=== PATIENT | female | born 1950 | race Caucasian/White ===

== ENCOUNTER 2017-12-28 20:24 | Emergency (ER) | payer OTHER, MEDICARE ==
[~2017-12-28] VITALS: Ht 167.6 cm; Wt 59.9 kg
[2017-12-28 20:43] VITALS: BP 143/84
--- NOTE | 2017-12-28 20:51 | NUR ---
TO LOBBY A/W BED, XRAY, VSS , AMB, ERMD NOTED
--- NOTE | 2017-12-28 20:53 | NUR ---
PT TAKEN TO BED 2
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
--- NOTE | 2017-12-28 21:21 | NUR ---
Cornelio boston in [facility] - 12/28/[address] Turner evaluating patient at bedside.
--- NOTE | 2017-12-28 21:22 | NUR ---
X-Ray at bedside.
--- NOTE | 2017-12-28 21:23 | NUR ---
RECEIVED REPORT FROM AM NURSE. PT RESTING IN BED, XR IN BEDSIDE AT THIS TIME.
--- NOTE | 2017-12-28 21:37 | NUR ---
Dr. Turner evaluating patient at bedside.
[2017-12-28 22:29] VITALS: BP 134/75
--- NOTE | 2017-12-28 22:30 | NUR ---
Patient discharged with v/s stable. Written and verbal after care instructions given and explained. Patient alert, oriented and verbalized understanding of instructions. Ambulatory with steady gait. All questions addressed prior to discharge. ID band removed. Patient advised to follow up with PMD. Rx of zithromax 250mg given. Patient educated on indication of medication including possible reaction and side effects. Opportunity to ask questions provided and answered.
== END 2017-12-28 22:30 | disposition home or self-care (01) ==
LOC: MED 20:24
DX: S43.491A Other sprain of right shoulder joint, initial encounter (principal); J44.1 Chronic obstructive pulmonary disease with (acute) exacerbation; Z88.0 Allergy status to penicillin; Z88.1 Allergy status to other antibiotic agents; Z88.6 Allergy status to analgesic agent; V49.69XA Unspecified car occupant injured in collision with other motor vehicles in traffic accident, initial encounter; Y93.89 Activity, other specified; Y99.8 Other external cause status; Y92.410 Unspecified street and highway as the place of occurrence of the external cause
CPT/HCPCS: 73030; 99284

== ENCOUNTER 2018-06-15 15:11 | Emergency (ER) | payer OTHER, MEDICARE ==
[~2018-06-15] VITALS: Ht 167.6 cm; Wt 60.8 kg
[2018-06-15 15:23] VITALS: BP 108/84
[2018-06-15] MEDS ORDERED: NACL 0.9% 1,000 ML IV SCH (16:17)
[2018-06-15] MEDS ORDERED: LORazepam 1 MG TAB PO ONE (16:20)
[2018-06-15 16:50] LABS: BASOPHILS # (AUTO) 0.1 K/uL (0.00-0.22); BASOPHILS % (AUTO) 0.7 % (0.0-2.0); EOSINOPHILS # (AUTO) 0.1 K/uL (0-0.4); EOSINOPHILS % (AUTO) 1.1 % (0.0-4.0); HEMATOCRIT 44.6 % (36-48); HEMOGLOBIN 14.4 g/dL (12.0-16.0); LYMPHOCYTES # (AUTO) 2.5 K/uL (2.5-16.5); LYMPHOCYTES % (AUTO) 18.8 % (20.5-51.1); MEAN CORPUSCULAR HEMOGLOBIN 31 pg (27-31); MEAN CORPUSCULAR HGB CONC 32 g/dL (33-37); MEAN CORPUSCULAR VOLUME 94.2 fL (80-94); MONOCYTES # (AUTO) 0.8 K/uL (0.8-1.0); MONOCYTES % (AUTO) 6.2 % (1.7-9.3); NEUTROPHILS # (AUTO) 9.6 K/uL (1.8-7.7); NEUTROPHILS % (AUTO) 73.2 % (42.2-75.2); PLATELET COUNT (AUTO) 260 K/uL (140-450); RED BLOOD CELL COUNT(AUTO) 4.74 MIL/uL (4.20-5.40); RED CELL DISTRIBUTION WIDTH 14.5 % (11.6-13.7); WHITE BLOOD COUNT (AUTO) 13.1 K/uL (4.8-10.8)
[2018-06-15 17:08] LABS: ANION GAP 11.8 (8-16); CARBON DIOXIDE 31.4 mmol/L (21-32); CREATININE 0.9 mg/dL (0.6-1.3); POTASSIUM 4.2 mmol/L (3.5-5.1); PROTHROMBIN TIME 9.4 secs (10.8-13.4)
[2018-06-15 17:09] LABS: APPEARANCE,URINE CLEAR (CLEAR); BILIRUBIN,URINE NEGATIVE (NEGATIVE); BLOOD, URINE 2+ (NEGATIVE); COLOR,URINE YELLOW (YELLOW); LEUKOCYTE ESTERASE ,URINE NEGATIVE (NEGATIVE); NITRITE, URINE NEGATIVE (NEGATIVE); UGLUCOSE NEGATIVE (NEGATIVE)
[2018-06-15 17:11] LABS: ALBUMIN 4.2 g/dL (3.4-5.0); TOTAL BILIRUBIN 0.6 mg/dL (0.0-1.0)
[2018-06-15 17:18] LABS: RBC,URINE 11-20 (MOD) /HPF (0-5); WBC,URINE 0-5 (RARE) /HPF (0-5)
[2018-06-15 18:42] VITALS: BP 108/84
== END 2018-06-15 18:43 | disposition home or self-care (01) ==
LOC: MED 15:11
DX: K62.5 Hemorrhage of anus and rectum (principal); J44.9 Chronic obstructive pulmonary disease, unspecified; H26.9 Unspecified cataract; Z88.0 Allergy status to penicillin; Z88.6 Allergy status to analgesic agent; Z88.8 Allergy status to other drugs, medicaments and biological substances
CPT/HCPCS: 36415; 74176; 80053; 81001; 82150; 83690; 85025; 85610; 85730; 86886; 86900; 86901; 93005; 96360; 99284; J7030

== ENCOUNTER 2019-05-24 17:05 | Emergency (ER) | payer OTHER, BC ==
[~2019-05-24] VITALS: Ht 167.6 cm; Wt 55.8 kg
[2019-05-24 17:52] VITALS: BP 121/76
--- NOTE | 2019-05-24 19:44 | NUR ---
68 Y/O FEMALE PRESENTS TO ED, C/O OF LEFT LEG PAIN. PT HAD PROCEDURE FOR VARICOSE VEINS, PT'S PHYSICIAN TEENAGE PROGRAM DIRECTOR WAS INJECTING UNKNOWN MEDICATION ON LEG. PT NOTICED PAIN ON June, 03/31; WOUND ON LEFT LOWER LEG. REDNESS AROUND WOUND, WARM TO TOUCH. NO DRAINAGE/BLEEDING. PT CURRENTLY RX DOXYCYCLINE, DENIES TAKING ANY MEDICATIONS FOR PAIN. PT AT STABLE CONDITION. ERMD AWARE. WILL CONTINUE TO MONITOR.
[2019-05-24] MEDS ORDERED: NACL 0.9% 1,000 ML IV ONE (20:15)
[2019-05-24] MEDS ORDERED: MORPHINE SULFATE 2 MG/ML SYR IVP ONE (20:15)
[2019-05-24] MEDS ORDERED: ALBUTEROL SULFATE/IPRATROPIU 3 ML SOL IH ONE (20:15)
[2019-05-24 21:12] LABS: BASOPHILS # (AUTO) 0.1 K/uL (0.00-0.22); BASOPHILS % (AUTO) 0.7 % (0.0-2.0); EOSINOPHILS # (AUTO) 0.2 K/uL (0-0.4); HEMATOCRIT 39.5 % (36-48); HEMOGLOBIN 13.1 g/dL (12.0-16.0); LYMPHOCYTES # (AUTO) 2.9 K/uL (2.5-16.5); LYMPHOCYTES % (AUTO) 31.7 % (20.5-51.1); MEAN CORPUSCULAR HEMOGLOBIN 31 pg (27-31); MEAN CORPUSCULAR HGB CONC 33 g/dL (33-37); MEAN CORPUSCULAR VOLUME 94.4 fL (80-94); MONOCYTES # (AUTO) 0.6 K/uL (0.8-1.0); MONOCYTES % (AUTO) 6.4 % (1.7-9.3); NEUTROPHILS # (AUTO) 5.3 K/uL (1.8-7.7); NEUTROPHILS % (AUTO) 59.2 % (42.2-75.2); PLATELET COUNT (AUTO) 236 K/uL (140-450); RED BLOOD CELL COUNT(AUTO) 4.19 MIL/uL (4.20-5.40); RED CELL DISTRIBUTION WIDTH 14.8 % (11.6-13.7)
[2019-05-24] MEDS ORDERED: LEVOFLOXACIN 500 MG/D5W PREMIX 100 ML IV ONE (21:30)
[2019-05-24 21:36] LABS: BILIRUBIN,URINE NEGATIVE (NEGATIVE); BLOOD, URINE 2+ (NEGATIVE); COLOR,URINE YELLOW (YELLOW); LEUKOCYTE ESTERASE ,URINE 1+ (NEGATIVE); NITRITE, URINE NEGATIVE (NEGATIVE); PH,URINE 7.5 (5.0-9.0); UGLUCOSE NEGATIVE (NEGATIVE)
[2019-05-24 21:39] LABS: ANION GAP 10.7 (8-16); CREATININE 0.7 mg/dL (0.6-1.3); POTASSIUM 3.7 mmol/L (3.5-5.1); TOTAL BILIRUBIN 0.5 mg/dL (0.0-1.0)
[2019-05-24 21:40] LABS: ALBUMIN 3.7 g/dL (3.4-5.0)
[2019-05-24 21:40] LABS: APPEARANCE,URINE HAZY (CLEAR)
[2019-05-24 22:50] VITALS: BP 127/86
--- NOTE | 2019-05-24 22:50 | NUR ---
PT DISCHARGED WITH PAPERWORK. RX TRAVIS. EDUCATED PT REGARDING MEDICATION. EDUCATED PT REGARDING D/C DIAGNOSIS AND INSTRUCTIONS. PT VERBALIZED UNDERSTANDING OF TEACHING. TOLD PT TO FOLLOW UP WITH PCP AND WHEN TO RETURN TO ED. PT AT STABLE CONDITION. PT DENIES ANY PAIN. ABLE TO AMBULATE WITH SLOW STEADY GAIT. ALL QUESTIONS ANSWERED.
== END 2019-05-24 22:50 | disposition home or self-care (01) ==
LOC: MED 17:05
DX: L03.116 Cellulitis of left lower limb (principal); R06.2 Wheezing; J43.9 Emphysema, unspecified; F17.210 Nicotine dependence, cigarettes, uncomplicated; Z88.0 Allergy status to penicillin; Z88.1 Allergy status to other antibiotic agents; Z88.6 Allergy status to analgesic agent; Z88.8 Allergy status to other drugs, medicaments and biological substances; Z98.890 Other specified postprocedural states; Z71.6 Tobacco abuse counseling
CPT/HCPCS: 36415; 71045; 80053; 81001; 83605; 85025; 87040; 87086; 94640; 96365; 96375; 99284; J1956; J2270; J7030; J7620; Q0092

== ENCOUNTER 2021-03-16 14:38 | Emergency (ER) | payer OTHER, MEDICAID ==
[~2021-03-16] VITALS: Ht 167.6 cm; Wt 62.6 kg
[2021-03-16 14:56] VITALS: BP 139/79
--- NOTE | 2021-03-16 15:05 | NUR ---
Pt taken to bed 11.
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
--- NOTE | 2021-03-16 16:10 | NUR ---
ULTRASOUND AT BEDSIDE
--- NOTE | 2021-03-16 17:00 | NUR ---
PT LEFT WITHOUT DISCHARGE PAPERS
== END 2021-03-16 17:00 | disposition home or self-care (01) ==
LOC: MED 14:38
DX: M79.604 Pain in right leg (principal); J43.9 Emphysema, unspecified; Z86.718 Personal history of other venous thrombosis and embolism
CPT/HCPCS: 93971; 99284; Q0092

== ENCOUNTER 2022-06-11 14:44 | Emergency (ER) | payer OTHER, MEDICAID ==
[~2022-06-11] VITALS: Ht 157.5 cm; Wt 62.8 kg
[2022-06-11 15:05] VITALS: BP 172/96
--- NOTE | 2022-06-11 15:08 | NUR ---
PATIENT HAD DISCOLORATION/SWELLING AND NUMBNESS ON BOTH FEET AND ANKLES X 2 WEEKS
--- NOTE | 2022-06-11 15:56 | NUR ---
Dr. Baig evaluating patient at bedside.
--- NOTE | 2022-06-11 16:17 | NUR ---
US at bedside.
[2022-06-11] MEDS ORDERED: ACET-10509 PO (17:15)
--- NOTE | 2022-06-11 17:20 | NUR ---
Dr. Baig re-evaluating patient at bedside.
[2022-06-11 17:41] VITALS: BP 160/81
--- NOTE | 2022-06-11 17:41 | NUR ---
Patient discharged with v/s stable. Written and verbal after care instructions given. Patient alert, oriented and verbalized understanding of instructions. Ambulatory with steady gait. All questions addressed prior to discharge. ID band removed. Patient advised to follow up with PMD. Rx of Acetaminophen given. Opportunity to ask questions provided and answered.
--- NOTE | 2022-06-11 17:42 | NUR ---
The patient's care was reviewed and supervised by Amalia Baeza, RN, RN.
== END 2022-06-11 17:41 | disposition home or self-care (01) ==
LOC: MED 14:44
DX: M79.605 Pain in left leg (principal); Z79.899 Other long term (current) drug therapy; Z88.0 Allergy status to penicillin; Z88.8 Allergy status to other drugs, medicaments and biological substances; Z88.6 Allergy status to analgesic agent; Z88.1 Allergy status to other antibiotic agents
CPT/HCPCS: 93970; 99284; Q0092

== ENCOUNTER 2022-06-29 22:29 | Emergency (ER) | payer OTHER, MEDICAID ==
[~2022-06-29] VITALS: Ht 167.6 cm; Wt 6.4 kg
[~2022-06-29 22:29] MED LIST: ACET-10509 PO
[2022-06-29 23:20] VITALS: BP 167/80
--- NOTE | 2022-06-29 23:23 | NUR ---
TO LOBBY A/W BED AMBULATORY
--- NOTE | 2022-06-29 23:35 | NUR ---
PER ADMITING PT LWBS
== END 2022-06-29 23:35 | disposition left against medical advice (07) ==
LOC: MED 22:29
DX: M79.662 Pain in left lower leg (principal); M79.661 Pain in right lower leg; Z53.21 Procedure and treatment not carried out due to patient leaving prior to being seen by health care provider

== ENCOUNTER 2022-09-09 15:52 | Emergency (ER) | payer OTHER, MEDICAID ==
[~2022-09-09] VITALS: Ht 167.6 cm; Wt 62.1 kg
[2022-09-09 15:56] VITALS: BP 143/79
--- NOTE | 2022-09-09 16:00 | NUR ---
71 Y/O FEMALE BIB SELF C/O RIGHT INDEX FINGER SWELLING AND PAINX 10 DAYS. WAS SEEN IN [facility]EST[facility]DAY FOR THE SAME COMPLAINT AND WAS DX DOXY. DENIES ANY TRAUMA/INJURY PMH: EMPHYSEMA, COPD
[2022-09-09] MEDS ORDERED: CLIN150C1 PO (17:57)
--- NOTE | 2022-09-09 18:18 | NUR ---
Patient discharged with v/s stable. Written and verbal after care instructions ABOUT CELLULITIS given and explained. Patient alert, oriented and verbalized understanding of instructions. Ambulatory with steady gait. All questions addressed prior to discharge. ID band removed. Patient advised to follow up with PMD. Rx of CLEOCIN given. Patient educated on indication of medication including possible reaction and side effects. Opportunity to ask questions provided and answered.
== END 2022-09-09 18:18 | disposition home or self-care (01) ==
LOC: MED 15:52
DX: L03.011 Cellulitis of right finger (principal); J44.9 Chronic obstructive pulmonary disease, unspecified; Z88.0 Allergy status to penicillin; Z88.8 Allergy status to other drugs, medicaments and biological substances; Z79.82 Long term (current) use of aspirin; Z91.040 Latex allergy status; Z79.899 Other long term (current) drug therapy
CPT/HCPCS: 99284

== ENCOUNTER 2022-12-21 12:48 | Emergency (ER) | payer OTHER, MEDICAID ==
[~2022-12-21] VITALS: Ht 167.6 cm; Wt 61.2 kg
[~2022-12-21 12:48] MED LIST changes: +CLIN150C1 PO
[2022-12-21 12:58] VITALS: BP 130/75; PULSE 92; RESP 20; TEMP 96.3; O2SAT 97
[2022-12-21] MEDS ORDERED: ACETAMINOPHEN EXTRA STRENGTH 500 MG TAB PO ONE (13:50)
--- NOTE | 2022-12-21 14:39 | NUR ---
MAULIK WRAP APPLIED TO R FOOT X 1
--- NOTE | 2022-12-21 15:18 | NUR ---
The patient's care was reviewed and supervised by TONY CASTILLO RN.
== END 2022-12-21 15:18 | disposition home or self-care (01) ==
LOC: MED 12:48
DX: S93.401A Sprain of unspecified ligament of right ankle, initial encounter (principal); S80.01XA Contusion of right knee, initial encounter; M79.671 Pain in right foot; J44.9 Chronic obstructive pulmonary disease, unspecified; F17.210 Nicotine dependence, cigarettes, uncomplicated; Z90.710 Acquired absence of both cervix and uterus; Z79.899 Other long term (current) drug therapy; Z79.2 Long term (current) use of antibiotics; Z88.0 Allergy status to penicillin; Z88.6 Allergy status to analgesic agent; Z88.8 Allergy status to other drugs, medicaments and biological substances; Z88.1 Allergy status to other antibiotic agents; W01.0XXA Fall on same level from slipping, tripping and stumbling without subsequent striking against object, initial encounter; Y92.89 Other specified places as the place of occurrence of the external cause; Y93.89 Activity, other specified; Y99.8 Other external cause status
CPT/HCPCS: 73562; 73610; 73630; 99284